=== PATIENT | female | born 1990 | race Caucasian/White ===

== ENCOUNTER 2017-03-26 22:42 | Emergency (ER) | payer OTHER ==
[~2017-03-26] VITALS: Ht 162.5 cm; Wt 86.2 kg
[~2017-03-26 22:42] MED LIST: AMOXICILLIN500 M2 PO; AMOXICILLIN500 M3 PO; AMOXICILLIN500 MG PO; AUGMENTIN 875 M1 TAB PO; AUGMENTIN 875875 MG PO; BACTRIM DS 8001 TA1 PO; BACTROBAN2% TP; BENTYL10 MG PO; CIPRO500 MG PO; CLARITIN10 MG PO; CLEOCIN150 MG PO; CLINDAMYCIN HC300 MG PO; DIFLUCAN150 MG PO; FLAGYL500 MG PO; FLEXERIL10 MG PO; HYDROCODONE BIT1 T11 PO; IBU800 MG PO; IRON325 M1 PO; KAOPECTATE525 MG/11 PO; LIDOCAINE VISC100 ML MM; MACROBID100 M1 PO; MACRODANTIN100 M1 PO; MAKENA250 MG/11 IM; MAXARON FORTE1 CAP; MEDROL DOSEPAK4 MG PO; MOTRIN800 MG PO; Motrin,Rufen800 MG PO; NAPROSYN250 MG PO; NAPROSYN500 MG PO; NITROFURANTOIN100 M1 PO; NKHM; NORCO 325 MG-51 TAB PO; OMEPRAZOLE40 MG PO; PEN-VEE K500 MG PO; PEN-VK500 MG PO; PENICILLIN VK500 MG PO; PENICILLIN-VK500 MG PO; PEPCID20 MG PO; PEPCID40 MG PO; PERCOCET 325 MG1 TA2 PO; PERCOCET 325 MG1 TA6 PO; PREDNISONE10 MG PO; PRENATAL PLUS1 EACH PO; PRENATAL VITAMI1 TAB PO; PRENATAL1 TA1 PO; PRENATAL1 TA7 PO; PYRIDIUM200 M1 PO; Peridex 473 ML473 ML PO; ROBITUSSIN DM 105 ML PO; TESSALON PERLE100 M1 PO; TESSALON PERLE200 MG PO; ULTRAM50 MG PO; VICODIN 5/500 505 MG PO; ZITHROMAX Z PA250 MG PO; ZITHROMAX250 MG PO; ZOFRAN ODT4 MG SL; ZYRTEC10 MG PO; Zofran4 MG PO
[2017-03-27] MEDS ORDERED: NAPROSYN500 MG PO ×2 (00:30→16:43)
== END 2017-03-27 00:57 | disposition home or self-care (01) ==
LOC: ED 22:42
DX: S93.401A Sprain of unspecified ligament of right ankle, initial encounter (principal); Z88.6 Allergy status to analgesic agent; Z90.49 Acquired absence of other specified parts of digestive tract; W01.0XXA Fall on same level from slipping, tripping and stumbling without subsequent striking against object, initial encounter; Y93.G3 Activity, cooking and baking; Y92.9 Unspecified place or not applicable; Y99.9 Unspecified external cause status

== ENCOUNTER 2017-03-27 16:23 | Emergency (ER) | payer OTHER ==
[~2017-03-27] VITALS: Ht 162.5 cm; Wt 86.2 kg
[2017-03-27] MEDS ORDERED: NAPROSYN500 MG PO (16:43)
== END 2017-03-27 16:48 | disposition home or self-care (01) ==
LOC: ED 16:23
DX: S93.401A Sprain of unspecified ligament of right ankle, initial encounter (principal); F17.200 Nicotine dependence, unspecified, uncomplicated; Z88.6 Allergy status to analgesic agent; X50.9XXA Other and unspecified overexertion or strenuous movements or postures, initial encounter; Y93.89 Activity, other specified; Y92.9 Unspecified place or not applicable; Y99.9 Unspecified external cause status

== ENCOUNTER 2017-04-17 19:47 | Emergency (ER) | payer OTHER ==
[~2017-04-17] VITALS: Ht 162.5 cm; Wt 85.7 kg
[2017-04-17] MEDS ORDERED: NAPROSYN500 MG PO (20:11)
== END 2017-04-17 20:47 | disposition home or self-care (01) ==
LOC: ED 19:47
DX: S93.601A Unspecified sprain of right foot, initial encounter (principal); R03.0 Elevated blood-pressure reading, without diagnosis of hypertension; F17.200 Nicotine dependence, unspecified, uncomplicated; Z88.6 Allergy status to analgesic agent; X58.XXXA Exposure to other specified factors, initial encounter; Y93.89 Activity, other specified; Y92.9 Unspecified place or not applicable; Y99.9 Unspecified external cause status

== ENCOUNTER 2017-08-28 19:07 | Emergency (ER) | payer SELFPAY ==
[~2017-08-28] VITALS: Ht 165.1 cm; Wt 90.7 kg
[2017-08-28 19:30] LABS: BILIRUBIN NEGATIVE (NEGATIVE); BLOOD NEGATIVE (NEGATIVE); CLARITY CLEAR (CLEAR); COLOR YELLOW (YELLOW); GLUCOSE NEGATIVE (NEGATIVE); KETONE NEGATIVE (NEGATIVE); LEUKO ESTERASE NEGATIVE (NEGATIVE); NITRITE NEGATIVE (NEGATIVE); SPECIFIC GRAVITY 1.015 (1.005-1.030); UROBILINOGEN 0.2 E.U./dl (0.2-1.0)
[2017-08-28 19:39] LABS: BASO # 0.1 10*3/uL (0.0-0.1); BASO % 0.7 % (0.0-1.0); EOS # 0.2 10*3/uL (0.0-0.4); EOS % 1.8 % (1.0-4.0); HEMATOCRIT 39.4 % (37.0-47.0); LYMPH # 2.6 10*3/uL (1.3-4.4); LYMPH % 24.8 % (27.0-41.0); MEAN CELL VOLUME 88.3 fl (81.0-99.0); MEAN CORPUSCULAR HGB 29.1 pg (27.0-31.0); MEAN PLATELET VOLUME 10.6 fl (9.6-12.3); MONO # 0.5 10*3/uL (0.1-1.0); MONO % 4.8 % (3.0-9.0); NEUT # 7.1 10*3/uL (2.3-7.9); NEUT % 67.5 % (47.0-73.0); PLATELET COUNT AUTOMATED 203 10*3/uL (130-400); RED BLOOD COUNT 4.46 10*6/uL (4.10-5.10); RED CELL DISTRI WIDTH 12.5 % (0-14.5); WHITE BLOOD COUNT 10.5 10*3/uL (4.8-10.8)
[2017-08-28 19:41] LABS: BACTERIA TRACE; EPITHELIAL CELLS 15-20; RBC 0-2 rbc/hpf (0-2); WBC 0-2 wbc/hpf (0-5)
[2017-08-28 19:55] LABS: ALBUMIN 3.5 gm/dl (3.1-4.5); ALKALINE PHOSPHATASE 99 U/L (45-117); BUN 18 mg/dl (7-24); CHLORIDE 105 mmol/L (98-107); CREATININE 0.76 mg/dL (0.55-1.02); LIPASE 112 U/L (73-393); SGOT/AST 14 IU/L (3-35); SGPT/ALT 15 U/L (12-78); SODIUM 139 mmol/L (136-145); TOTAL PROTEIN 7.8 gm/dL (6.4-8.2)
[2017-08-28] MEDS ORDERED: ANAPROX DS550 MG PO (20:35)
[2017-08-28] MEDS ORDERED: ZOFRAN ODT4 MG SL (20:35)
== END 2017-08-28 20:57 | disposition home or self-care (01) ==
LOC: ED 19:07
PROVIDERS: Physician Assistant
DX: R10.11 Right upper quadrant pain (principal); R30.0 Dysuria; R11.0 Nausea; F17.200 Nicotine dependence, unspecified, uncomplicated; Z88.6 Allergy status to analgesic agent; Z87.442 Personal history of urinary calculi

== ENCOUNTER 2017-08-31 09:11 | Inpatient (IN) | payer OTHER ==
[~2017-08-31] VITALS: Ht 162.5 cm; Wt 106.4 kg
[~2017-08-31 09:11] MED LIST changes: +ANAPROX DS550 MG PO
[2017-08-31 09:28] VITALS: BP 140/81
[2017-08-31 10:27] LABS: MAGNESIUM 2.1 mg/dL (1.5-2.1)
[2017-08-31 10:28] VITALS: BP 116/62
[2017-08-31 10:28] LABS: ALBUMIN 3.3 gm/dl (3.1-4.5); ALKALINE PHOSPHATASE 83 U/L (45-117); BUN 15 mg/dl (7-24); CHLORIDE 105 mmol/L (98-107); POTASSIUM 3.8 mmol/L (3.5-5.1); SGOT/AST 15 IU/L (3-35); SGPT/ALT 17 U/L (12-78); SODIUM 139 mmol/L (136-145); TOTAL PROTEIN 7.5 gm/dL (6.4-8.2)
[2017-08-31 10:30] LABS: BASO # 0.1 10*3/uL (0.0-0.1); BASO % 0.6 % (0.0-1.0); EOS # 0.2 10*3/uL (0.0-0.4); EOS % 2.1 % (1.0-4.0); LYMPH # 1.8 10*3/uL (1.3-4.4); MEAN CELL VOLUME 90.7 fl (81.0-99.0); MEAN CORPUSCULAR HGB 29.3 pg (27.0-31.0); MEAN CORPUSCULAR HGB CONC 32.4 g/dl (33.0-37.0); MEAN PLATELET VOLUME 10.3 fl (9.6-12.3); MONO # 0.4 10*3/uL (0.1-1.0); MONO % 4.3 % (3.0-9.0); NEUT % 71.6 % (47.0-73.0); PLATELET COUNT AUTOMATED 162 10*3/uL (130-400); RED BLOOD COUNT 3.75 10*6/uL (4.10-5.10); RED CELL DISTRI WIDTH 12.3 % (0-14.5); WHITE BLOOD COUNT 8.4 10*3/uL (4.8-10.8)
[2017-08-31 10:31] LABS: B-hCG (QUALITATIVE) NEGATIVE (NEGATIVE)
[2017-08-31 10:35] LABS: BILIRUBIN 1+ (NEGATIVE); BLOOD NEGATIVE (NEGATIVE); CLARITY SL CLOUDY (CLEAR); COLOR YELLOW (YELLOW); GLUCOSE NEGATIVE (NEGATIVE); KETONE NEGATIVE (NEGATIVE); LEUKO ESTERASE TRACE (NEGATIVE); NITRITE NEGATIVE (NEGATIVE); PH 5.5 (5.0-9.0)
[2017-08-31 10:54] LABS: BACTERIA 1+; EPITHELIAL CELLS TNTC
--- NOTE | 2017-08-31 11:28 | NUR ---
PT REMAINS W/O ACUTE DISTRESS NOTED AWAITING ALL REPORTS FOR ADDITIONAL PLAN OF CARE,NO COMPLAINTS VOICED.
--- NOTE | 2017-08-31 12:30 | NUR ---
GIVEN REPORT FROM STEVE. PT IS LYING ON BED. NO DISTRESS AT THIS TIME. WILL CONTINUE TO MONITOR.
[2017-08-31 12:50] VITALS: BP 120/63
--- NOTE | 2017-08-31 14:39 | NUR ---
PT TOLERATED PAIN MEDICATION WELL. PT STATES THAT SHE HAS RELIEF OF PAIN. VSS. WILL CONTINUE TO MONITOR.
[2017-08-31 15:15] VITALS: BP 122/82
--- NOTE | 2017-08-31 15:15 | NUR ---
Time: 1514 A 27 year old FEMALE admitted to under services of LIANNA PATTERSON DO. Pt. arrived via stretcher from ER. Chief complaint: ABDOMINAL PAIN AND NAUSEA. MADELYN OLIVAS
--- NOTE | 2017-08-31 15:49 | NUR ---
NOTIFIED DR GAMBLE OF CONSULT NEW ORDER RECEIVED TO KEEP NPO.
--- NOTE | 2017-08-31 16:31 | NUR ---
DIALUDID 0.5MG IV GIVEN PER PATIENT REQUEST FOR ABDOMINAL PAIN RATING A 7/10.
--- NOTE | 2017-08-31 17:30 | NUR ---
DILAUDID EFFECTIVE PER PATIENT.
--- NOTE | 2017-08-31 17:59 | NUR ---
ZOFRAN 4MG IV GIVEN PER PATIENT REQUEST FOR NAUSEA.
--- NOTE | 2017-08-31 19:34 | NUR ---
PRN DILAUDID GIVEN FOR PT COMPLAINTS OF RIGHT UPPER QUADRANT PAIN RATING IT AN 8/10. CALL LIGHT WITHIN REACH, WILL MONITOR
[2017-08-31 20:00] VITALS: BP 115/48
--- NOTE | 2017-08-31 20:00 | NUR ---
PRN DILAUDID SOMEWHAT EFFECTIVE PER PT. PAIN NOW 04/23
--- NOTE | 2017-08-31 22:22 | NUR ---
PRN DILAUDID GIVEN FOR PT COMPLAINTS OF PAIN IN RUQ RATING 9/10. CALL LIGHT WITHIN REACH, WILL MONITOR
--- NOTE | 2017-08-31 23:00 | NUR ---
PRN DILAUDID APPEARS EFFECTIVE, PT SLEEPING
[2017-09-01] VITALS: BP 119/67
--- NOTE | 2017-09-01 01:37 | NUR ---
PRN ZOFRAN AND DILAUDID GIVEN FOR PT COMPLAINTS OF NAUSEA AND RUQ ABDOMINAL PAIN RATING IT A 6/10. CALL LIGHT WITHIN REACH, WILL MONITOR
--- NOTE | 2017-09-01 02:30 | NUR ---
PRN MEDICATION APPEARS EFFECTIVE, PT SLEEPING
[2017-09-01 06:17] LABS: BASO % 0.5 % (0.0-1.0); EOS # 0.1 10*3/uL (0.0-0.4); EOS % 1.7 % (1.0-4.0); HEMATOCRIT 31.8 % (37.0-47.0); HEMOGLOBIN 10.1 g/dl (12.0-16.0); LYMPH # 1.5 10*3/uL (1.3-4.4); LYMPH % 25.6 % (27.0-41.0); MEAN CELL VOLUME 90.9 fl (81.0-99.0); MEAN CORPUSCULAR HGB 28.9 pg (27.0-31.0); MEAN CORPUSCULAR HGB CONC 31.8 g/dl (33.0-37.0); MEAN PLATELET VOLUME 11.4 fl (9.6-12.3); MONO # 0.3 10*3/uL (0.1-1.0); MONO % 5.3 % (3.0-9.0); NEUT # 3.9 10*3/uL (2.3-7.9); NEUT % 66.7 % (47.0-73.0); PLATELET COUNT AUTOMATED 171 10*3/uL (130-400); RED CELL DISTRI WIDTH 12.4 % (0-14.5); WHITE BLOOD COUNT 5.9 10*3/uL (4.8-10.8)
--- NOTE | 2017-09-01 06:44 | NUR ---
DR. GAMBLE IN TO SEE PATIENT. DR. GAMBLE STATES THE PATIENT WILL MAINTAIN ON FLUIDS, CAN HAVE A CLEAR LIQUID DIET, NO MORE DILAUDID UNLESS PAIN IS UNCONTROLLED WITH NORCO 5/325 EVERY 6 HOURS. THEN TO GIVE HIM A CALL FOR ANOTHER ORDER OF DILAUDID. DILAUDID SHOULD BE D/C'D. NO SURGERY OF RIGHT NOW
[2017-09-01 06:49] LABS: ALBUMIN 2.8 gm/dl (3.1-4.5); ALKALINE PHOSPHATASE 132 U/L (45-117); BUN 12 mg/dl (7-24); CHLORIDE 107 mmol/L (98-107); CHOLESTEROL 133 mg/dL (<200); HDL CHOLESTEROL 40 mg/dl (40-60); LDL CHOLESTEROL 76 mg/dL (9-159); MAGNESIUM 2.1 mg/dL (1.5-2.1); PHOSPHOROUS 3.5 mg/dL (2.5-4.9); POTASSIUM 3.7 mmol/L (3.5-5.1); SGOT/AST 69 IU/L (3-35); SGPT/ALT 64 U/L (12-78); SODIUM 141 mmol/L (136-145); TOTAL PROTEIN 6.8 gm/dL (6.4-8.2); TRIGLYCERIDES 85 mg/dl (<150); VLDL CHOLESTEROL 17 mg/dL (6-40)
[2017-09-01 06:54] LABS: ACT PARTIAL THROMBO TIME 23.9 SECONDS (20.8-31.5)
[2017-09-01 07:09] LABS: VITAMIN D, 25-HYDROXY 23.2 ng/mL (30-100)
[2017-09-01 08:00] VITALS: BP 121/61
--- NOTE | 2017-09-01 08:30 | NUR ---
Car Repairer Helper in to talk to patient. Patient states lives at HOME with HER BOYFRIEND. There are 0 steps in the home. Physician: SEE Pharmacy: [facility] Home health services: NONE Patient's level of ADLs: INDEPENDENT Patient has working utilities: YES DME: NONE Follow-up physician's appointment after d/c: WILL BE MADE PRIOR TO DC Does patient want to access PORTAL?: Discharge plan HOME. GILMA BELTRAN
[2017-09-01 12:00] VITALS: BP 98/62
--- NOTE | 2017-09-01 15:05 | NUR ---
DR GAMBLE IN TO SEE PT. ORDER RECEIVED FOR NPO AFTER MIDNIGHT 09/01 AND PT CAN HAVE YOGURT.
--- NOTE | 2017-09-01 15:50 | NUR ---
ADMINISTERED PO NRCO PER PT REQUEST FOR PAIN IN RIGHT UPPER AND LOWER QUADS RATED 6/10. WILL MONITOR FOR EFFECTIVENESS.
[2017-09-01 16:00] VITALS: BP 119/58
--- NOTE | 2017-09-01 16:51 | NUR ---
Patient resting quietly with no c/o discomfort. Respirations easy and regular. Vital signs stable. No overt distress. LALITHA VALLES
[2017-09-01 20:00] VITALS: BP 104/79
[2017-09-02] VITALS: BP 139/68
[2017-09-02 06:14] LABS: BASO % 0.5 % (0.0-1.0); EOS # 0.2 10*3/uL (0.0-0.4); EOS % 3.2 % (1.0-4.0); HEMATOCRIT 32.6 % (37.0-47.0); HEMOGLOBIN 10.6 g/dl (12.0-16.0); LYMPH # 2.1 10*3/uL (1.3-4.4); MEAN CELL VOLUME 90.8 fl (81.0-99.0); MEAN CORPUSCULAR HGB 29.5 pg (27.0-31.0); MEAN CORPUSCULAR HGB CONC 32.5 g/dl (33.0-37.0); MEAN PLATELET VOLUME 10.8 fl (9.6-12.3); MONO # 0.3 10*3/uL (0.1-1.0); MONO % 4.7 % (3.0-9.0); NEUT # 3.6 10*3/uL (2.3-7.9); NEUT % 58.4 % (47.0-73.0); PLATELET COUNT AUTOMATED 169 10*3/uL (130-400); RED BLOOD COUNT 3.59 10*6/uL (4.10-5.10); RED CELL DISTRI WIDTH 12.3 % (0-14.5); WHITE BLOOD COUNT 6.2 10*3/uL (4.8-10.8)
[2017-09-02 06:37] LABS: ALBUMIN 2.5 gm/dl (3.1-4.5); ALKALINE PHOSPHATASE 127 U/L (45-117); BUN 7 mg/dl (7-24); CHLORIDE 108 mmol/L (98-107); CREATININE 0.63 mg/dL (0.55-1.02); POTASSIUM 3.8 mmol/L (3.5-5.1); SGOT/AST 62 IU/L (3-35); SGPT/ALT 86 U/L (12-78); SODIUM 142 mmol/L (136-145); TOTAL PROTEIN 6.1 gm/dL (6.4-8.2)
--- NOTE | 2017-09-02 06:50 | NUR ---
DR. GAMBLE IN TO SEE PATIENT. STATES THAT PATIENT IS OK TO HAVE A REGULAR DIET AND OK TO GO HOME TODAY. SHE IS DOING MUCH BETTER.
--- NOTE | 2017-09-02 07:45 | NUR ---
PATIENT AWAKE. EATING BREAKFAST. STATES SHE IS FEELING MUCH BETTER AND IS EAGER TO GO HOME TODAY. NO PT COMPLAINTS AT THIS TIME.
[2017-09-02 08:00] VITALS: BP 137/84
--- NOTE | 2017-09-02 09:08 | NUR ---
PER PATIENT SHE ATE BREAKFAST AND IS NOT EXPERIENCING ANY NAUSEA OR PAIN AND WOULD LIKE TO GO HOME. PER DR GAMBLE PATIENT IS CLEAR TO GO. SPOKE TO DR LOYA REGARDING DISCHARGE. HE STATES HE WILL GET IT PUT IN.
[2017-09-02] MEDS ORDERED: CIPRO500 MG PO (09:37)
[2017-09-02] MEDS ORDERED: VITAMIN D31000 UNI1 PO (09:37)
[2017-09-02] MEDS ORDERED: FLAGYL500 MG PO (09:37)
--- NOTE | 2017-09-02 10:55 | NUR ---
Discharge instructions reviewed with patient/family. Patient receptive and verbalizes understanding. Follow-up care arranged. Written instructions given to patient/family. LALITHA VALLES
== END 2017-09-02 10:55 | disposition home or self-care (01) | DRG 394 ==
LOC: ED 09:11 → 4E 13:59 → EDHOLD 13:59 → 4E 14:15
PROVIDERS: Emergency Medicine; Family Medicine; Internal Medicine Nephrology; ADMIT Internal Medicine
DX: K35.80 Unspecified acute appendicitis (principal); E44.0 Moderate protein-calorie malnutrition; Z68.41 Body mass index [BMI] 40.0-44.9, adult; D64.9 Anemia, unspecified; D72.810 Lymphocytopenia; E66.09 Other obesity due to excess calories; F17.210 Nicotine dependence, cigarettes, uncomplicated; E55.9 Vitamin D deficiency, unspecified; Z71.6 Tobacco abuse counseling; Z88.6 Allergy status to analgesic agent; Z87.440 Personal history of urinary (tract) infections; Z90.49 Acquired absence of other specified parts of digestive tract; Z83.3 Family history of diabetes mellitus; Z79.899 Other long term (current) drug therapy

== ENCOUNTER 2017-10-16 13:35 | Emergency (ER) | payer OTHER ==
[~2017-10-16] VITALS: Ht 162.5 cm; Wt 99.8 kg
[~2017-10-16 13:35] MED LIST changes: +VITAMIN D31000 UNI1 PO
== END 2017-10-16 15:55 | disposition home or self-care (01) ==
LOC: ED 13:35
DX: J06.9 Acute upper respiratory infection, unspecified (principal); F17.200 Nicotine dependence, unspecified, uncomplicated; E66.9 Obesity, unspecified; Z90.49 Acquired absence of other specified parts of digestive tract; Z88.5 Allergy status to narcotic agent

== ENCOUNTER 2017-10-22 00:17 | Emergency (ER) | payer OTHER ==
[~2017-10-22] VITALS: Ht 162.5 cm; Wt 99.8 kg
[2017-10-22 01:00] LABS: BASO % 0.4 % (0.0-1.0); EOS # 0.2 10*3/uL (0.0-0.4); EOS % 2.3 % (1.0-4.0); HEMATOCRIT 35.5 % (37.0-47.0); HEMOGLOBIN 11.6 g/dl (12.0-16.0); LYMPH # 2.5 10*3/uL (1.3-4.4); LYMPH % 32.3 % (27.0-41.0); MEAN CELL VOLUME 88.3 fl (81.0-99.0); MEAN CORPUSCULAR HGB 28.9 pg (27.0-31.0); MEAN CORPUSCULAR HGB CONC 32.7 g/dl (33.0-37.0); MEAN PLATELET VOLUME 11.2 fl (9.6-12.3); MONO # 0.3 10*3/uL (0.1-1.0); MONO % 4.4 % (3.0-9.0); NEUT # 4.7 10*3/uL (2.3-7.9); NEUT % 60.3 % (47.0-73.0); PLATELET COUNT AUTOMATED 161 10*3/uL (130-400); RED BLOOD COUNT 4.02 10*6/uL (4.10-5.10); WHITE BLOOD COUNT 7.7 10*3/uL (4.8-10.8)
[2017-10-22 01:08] LABS: BILIRUBIN NEGATIVE (NEGATIVE); BLOOD NEGATIVE (NEGATIVE); CLARITY CLEAR (CLEAR); COLOR YELLOW (YELLOW); GLUCOSE NEGATIVE (NEGATIVE); KETONE NEGATIVE (NEGATIVE); LEUKO ESTERASE NEGATIVE (NEGATIVE); NITRITE NEGATIVE (NEGATIVE); SPECIFIC GRAVITY 1.025 (1.005-1.030); UROBILINOGEN 0.2 E.U./dl (0.2-1.0)
[2017-10-22 01:16] LABS: ALBUMIN 3.3 gm/dl (3.1-4.5); ALKALINE PHOSPHATASE 85 U/L (45-117); BUN 16 mg/dl (7-24); CHLORIDE 106 mmol/L (98-107); CREATININE 0.72 mg/dL (0.55-1.02); LIPASE 99 U/L (73-393); POTASSIUM 3.6 mmol/L (3.5-5.1); SGOT/AST 14 IU/L (3-35); SGPT/ALT 18 U/L (12-78); SODIUM 140 mmol/L (136-145); TOTAL PROTEIN 7.3 gm/dL (6.4-8.2)
[2017-10-22 01:17] LABS: EPITHELIAL CELLS 15-20
[2017-10-22 01:18] LABS: BETA-HCG, QUANT < 1.0 mIU/mL (1-3)
== END 2017-10-22 02:42 | disposition home or self-care (01) ==
LOC: ED 00:17
PROVIDERS: Student in an Organized Health Care Education/Training Program
DX: R10.31 Right lower quadrant pain (principal); F17.200 Nicotine dependence, unspecified, uncomplicated; Z90.49 Acquired absence of other specified parts of digestive tract; Z88.6 Allergy status to analgesic agent

== ENCOUNTER 2018-02-09 17:22 | Emergency (ER) | payer OTHER ==
[~2018-02-09] VITALS: Wt 89.8 kg
[2018-02-09] MEDS ORDERED: ACULAR 0.5%3 ML OPH (18:12)
[2018-02-09] MEDS ORDERED: ZYRTEC10 MG PO (18:12)
== END 2018-02-09 18:16 | disposition home or self-care (01) ==
LOC: ED 17:22
DX: H10.11 Acute atopic conjunctivitis, right eye (principal); F17.200 Nicotine dependence, unspecified, uncomplicated; Z90.49 Acquired absence of other specified parts of digestive tract; Z88.5 Allergy status to narcotic agent

== ENCOUNTER 2018-04-22 11:48 | Emergency (ER) | payer OTHER ==
[~2018-04-22] VITALS: Ht 162.5 cm; Wt 86.2 kg
[~2018-04-22 11:48] MED LIST changes: +ACULAR 0.5%3 ML OPH
[2018-04-22] MEDS ORDERED: AUGMENTIN 875-875 MG PO (12:18)
[2018-04-22] MEDS ORDERED: FLOXIN10 ML OT (12:18)
== END 2018-04-22 13:55 | disposition home or self-care (01) ==
LOC: ED 11:48
DX: H66.92 Otitis media, unspecified, left ear (principal); F17.200 Nicotine dependence, unspecified, uncomplicated; Z90.49 Acquired absence of other specified parts of digestive tract; Z79.899 Other long term (current) drug therapy; Z88.5 Allergy status to narcotic agent

== ENCOUNTER 2018-05-28 12:23 | Emergency (ER) | payer OTHER ==
[~2018-05-28] VITALS: Ht 162.5 cm; Wt 86.2 kg
[~2018-05-28 12:23] MED LIST changes: +AUGMENTIN 875-875 MG PO; +FLOXIN10 ML OT
[2018-05-28] MEDS ORDERED: TYLENOL325 M1 PO ×2 (12:39→12:40)
[2018-05-28] MEDS ORDERED: VALTREX1000 MG PO ×2 (12:39→12:40)
[2018-05-28] MEDS ORDERED: NAPROSYN500 MG PO ×2 (12:39→12:40)
== END 2018-05-28 12:50 | disposition home or self-care (01) ==
LOC: ED 12:23
DX: B02.9 Zoster without complications (principal); F17.200 Nicotine dependence, unspecified, uncomplicated; Z88.6 Allergy status to analgesic agent

== ENCOUNTER 2018-05-30 17:47 | Emergency (ER) | payer OTHER ==
[~2018-05-30] VITALS: Ht 162.5 cm; Wt 86.2 kg
[~2018-05-30 17:47] MED LIST changes: +TYLENOL325 M1 PO; +VALTREX1000 MG PO
[2018-05-30] MEDS ORDERED: NORCO 5-325 TA1 EACH PO (18:07)
== END 2018-05-30 18:16 | disposition home or self-care (01) ==
LOC: ED 17:47
DX: B02.9 Zoster without complications (principal); M79.605 Pain in left leg; M25.552 Pain in left hip; F17.200 Nicotine dependence, unspecified, uncomplicated; Z88.6 Allergy status to analgesic agent

== ENCOUNTER 2018-08-21 15:58 | Emergency (ER) | payer SELFPAY ==
[~2018-08-21] VITALS: Ht 162.5 cm; Wt 89.8 kg
[~2018-08-21 15:58] MED LIST changes: +NORCO 5-325 TA1 EACH PO
[2018-08-21 17:02] LABS: BASO % 0.4 % (0.0-1.0); EOS # 0.2 10*3/uL (0.0-0.4); EOS % 2.7 % (1.0-4.0); HEMATOCRIT 37.3 % (37.0-47.0); HEMOGLOBIN 12.3 g/dl (12.0-16.0); LYMPH # 2.2 10*3/uL (1.3-4.4); MEAN CELL VOLUME 88.2 fl (81.0-99.0); MEAN CORPUSCULAR HGB 29.1 pg (27.0-31.0); MEAN PLATELET VOLUME 11.7 fl (9.6-12.3); MONO # 0.4 10*3/uL (0.1-1.0); MONO % 4.7 % (3.0-9.0); NEUT # 4.7 10*3/uL (2.3-7.9); NEUT % 62.8 % (47.0-73.0); PLATELET COUNT AUTOMATED 161 10*3/uL (130-400); RED BLOOD COUNT 4.23 10*6/uL (4.10-5.10); RED CELL DISTRI WIDTH 13.2 % (0-14.5); WHITE BLOOD COUNT 7.5 10*3/uL (4.8-10.8)
[2018-08-21 17:17] LABS: ALBUMIN 3.4 gm/dl (3.1-4.5); ALKALINE PHOSPHATASE 79 U/L (45-117); BUN 19 mg/dl (7-24); CHLORIDE 106 mmol/L (98-107); CREATININE 0.75 mg/dL (0.55-1.02); POTASSIUM 4.1 mmol/L (3.5-5.1); SGOT/AST 17 IU/L (3-35); SGPT/ALT 19 U/L (12-78); SODIUM 140 mmol/L (136-145); TOTAL PROTEIN 7.7 gm/dL (6.4-8.2)
[2018-08-21] MEDS ORDERED: NEURONTIN300 MG PO (18:08)
== END 2018-08-21 18:07 | disposition home or self-care (01) ==
LOC: ED 15:58
PROVIDERS: Physician Assistant
DX: B02.29 Other postherpetic nervous system involvement (principal); F17.200 Nicotine dependence, unspecified, uncomplicated; Z88.5 Allergy status to narcotic agent; Z79.2 Long term (current) use of antibiotics; Z79.1 Long term (current) use of non-steroidal anti-inflammatories (NSAID); Z88.8 Allergy status to other drugs, medicaments and biological substances; Z90.49 Acquired absence of other specified parts of digestive tract

== ENCOUNTER 2018-08-27 11:27 | Emergency (ER) | payer OTHER ==
[~2018-08-27] VITALS: Ht 162.5 cm; Wt 86.2 kg
[~2018-08-27 11:27] MED LIST changes: +NEURONTIN300 MG PO
[2018-08-27] MEDS ORDERED: VALTREX1000 MG PO (13:08)
[2018-08-27] MEDS ORDERED: NEURONTIN300 MG PO (13:10)
== END 2018-08-27 14:05 | disposition home or self-care (01) ==
LOC: ED 11:27
DX: B02.29 Other postherpetic nervous system involvement (principal); B02.9 Zoster without complications; F17.200 Nicotine dependence, unspecified, uncomplicated; Z88.5 Allergy status to narcotic agent; Z79.2 Long term (current) use of antibiotics; Z79.899 Other long term (current) drug therapy; Z90.49 Acquired absence of other specified parts of digestive tract

== ENCOUNTER 2018-12-23 16:22 | Emergency (ER) | payer OTHER ==
[~2018-12-23] VITALS: Ht 162.5 cm; Wt 89.8 kg
[2018-12-23] MEDS ORDERED: CLARITIN10 MG PO (16:50)
[2018-12-23] MEDS ORDERED: FLONASE ALLERG9.9 ML NAS (16:50)
[2018-12-23] MEDS ORDERED: PREDNISONE10 MG PO (16:50)
== END 2018-12-23 18:11 | disposition home or self-care (01) ==
LOC: ED 16:22
DX: B34.9 Viral infection, unspecified (principal); R03.0 Elevated blood-pressure reading, without diagnosis of hypertension; E66.9 Obesity, unspecified; F17.200 Nicotine dependence, unspecified, uncomplicated; Z88.5 Allergy status to narcotic agent; Z79.2 Long term (current) use of antibiotics; Z79.899 Other long term (current) drug therapy; Z90.49 Acquired absence of other specified parts of digestive tract

== ENCOUNTER 2019-04-03 07:37 | Emergency (ER) | payer OTHER ==
[~2019-04-03] VITALS: Ht 162.5 cm; Wt 90.3 kg
[~2019-04-03 07:37] MED LIST changes: +FLONASE ALLERG9.9 ML NAS
[2019-04-03] MEDS ORDERED: VALTREX1000 MG PO (07:52)
[2019-04-03] MEDS ORDERED: Motrin,Rufen400 MG PO (07:52)
[2019-04-03] MEDS ORDERED: TYLENOL325 M1 PO (07:52)
== END 2019-04-03 08:00 | disposition home or self-care (01) ==
LOC: ED 07:37
DX: B02.9 Zoster without complications (principal); R19.7 Diarrhea, unspecified; E66.9 Obesity, unspecified; F17.200 Nicotine dependence, unspecified, uncomplicated; Z88.5 Allergy status to narcotic agent

== ENCOUNTER 2019-04-06 07:33 | Emergency (ER) | payer OTHER ==
[~2019-04-06] VITALS: Ht 162.5 cm; Wt 89.8 kg
[~2019-04-06 07:33] MED LIST changes: +Motrin,Rufen400 MG PO
[2019-04-06] MEDS ORDERED: NORCO 5-325 TA1 EACH PO (08:08)
== END 2019-04-06 08:25 | disposition home or self-care (01) ==
LOC: ED 07:33
DX: B02.9 Zoster without complications (principal); M79.652 Pain in left thigh; E66.9 Obesity, unspecified; F17.200 Nicotine dependence, unspecified, uncomplicated; Z88.5 Allergy status to narcotic agent; Z79.899 Other long term (current) drug therapy; Z90.49 Acquired absence of other specified parts of digestive tract

== ENCOUNTER 2019-07-23 18:33 | Emergency (ER) | payer OTHER ==
[~2019-07-23] VITALS: Ht 162.5 cm; Wt 99.8 kg
[2019-07-23] MEDS ORDERED: NORCO 5-325 TA1 EACH PO (19:21)
[2019-07-23] MEDS ORDERED: ACYCLOVIR800 MG PO (19:21)
== END 2019-07-23 19:31 | disposition home or self-care (01) ==
LOC: ED 18:33
DX: B02.9 Zoster without complications (principal); F17.200 Nicotine dependence, unspecified, uncomplicated; Z88.6 Allergy status to analgesic agent

== ENCOUNTER 2019-07-25 18:47 | Emergency (ER) | payer OTHER ==
[~2019-07-25] VITALS: Ht 162.5 cm; Wt 99.8 kg
[~2019-07-25 18:47] MED LIST changes: +ACYCLOVIR800 MG PO
[2019-07-25] MEDS ORDERED: NEURONTIN300 MG PO ×2 (21:10→21:11)
== END 2019-07-25 21:04 | disposition home or self-care (01) ==
LOC: ED 18:47
DX: K52.9 Noninfective gastroenteritis and colitis, unspecified (principal); B02.9 Zoster without complications; R11.2 Nausea with vomiting, unspecified; F17.200 Nicotine dependence, unspecified, uncomplicated; Z90.49 Acquired absence of other specified parts of digestive tract; Z79.899 Other long term (current) drug therapy; Z88.5 Allergy status to narcotic agent

== ENCOUNTER 2019-08-01 20:55 | Emergency (ER) | payer OTHER ==
[~2019-08-01] VITALS: Ht 162.5 cm; Wt 103.4 kg
[2019-08-01 21:11] LABS: BILIRUBIN NEGATIVE (NEGATIVE); BLOOD NEGATIVE (NEGATIVE); CLARITY SL CLOUDY (CLEAR); COLOR YELLOW (YELLOW); GLUCOSE NEGATIVE (NEGATIVE); KETONE NEGATIVE (NEGATIVE); LEUKO ESTERASE TRACE (NEGATIVE); NITRITE NEGATIVE (NEGATIVE); PH 7.5 (5.0-9.0); SPECIFIC GRAVITY 1.015 (1.005-1.030); UROBILINOGEN 0.2 E.U./dl (0.2-1.0)
[2019-08-01 21:17] LABS: BACTERIA TRACE
[2019-08-01 22:00] LABS: ALBUMIN 3.4 gm/dl (3.1-4.5); ALKALINE PHOSPHATASE 109 U/L (45-117); BUN 16 mg/dl (7-24); CHLORIDE 104 mmol/L (98-107); CREATININE 0.73 mg/dL (0.55-1.02); LIPASE 123 U/L (73-393); POTASSIUM 3.6 mmol/L (3.5-5.1); SGOT/AST 87 IU/L (3-35); SGPT/ALT 119 U/L (12-78); SODIUM 137 mmol/L (136-145); TOTAL PROTEIN 7.3 gm/dL (6.4-8.2)
[2019-08-01 22:56] LABS: BASO % 0.3 % (0.0-1.0); EOS # 0.2 10*3/uL (0.0-0.4); EOS % 1.9 % (1.0-4.0); HEMATOCRIT 37.5 % (37.0-47.0); HEMOGLOBIN 12.6 g/dl (12.0-16.0); LYMPH # 2.4 10*3/uL (1.3-4.4); MEAN CELL VOLUME 88.2 fl (81.0-99.0); MEAN CORPUSCULAR HGB 29.6 pg (27.0-31.0); MEAN CORPUSCULAR HGB CONC 33.6 g/dl (33.0-37.0); MEAN PLATELET VOLUME 11.7 fl (9.6-12.3); MONO # 0.4 10*3/uL (0.1-1.0); MONO % 4.3 % (3.0-9.0); NEUT % 66.3 % (47.0-73.0); PLATELET COUNT AUTOMATED 181 10*3/uL (130-400); RED BLOOD COUNT 4.25 10*6/uL (4.10-5.10); RED CELL DISTRI WIDTH 12.8 % (0-14.5)
== END 2019-08-01 23:32 | disposition home or self-care (01) ==
LOC: ED 20:55
PROVIDERS: Emergency Medicine; Physician Assistant
DX: R10.31 Right lower quadrant pain (principal); R11.2 Nausea with vomiting, unspecified; F17.200 Nicotine dependence, unspecified, uncomplicated; Z88.5 Allergy status to narcotic agent; Z79.899 Other long term (current) drug therapy; Z90.49 Acquired absence of other specified parts of digestive tract

== ENCOUNTER 2019-08-26 18:55 | Emergency (ER) | payer OTHER ==
[~2019-08-26] VITALS: Ht 162.5 cm; Wt 98.0 kg
[2019-08-26 20:16] LABS: ALBUMIN 3.6 gm/dl (3.1-4.5); ALKALINE PHOSPHATASE 109 U/L (45-117); BUN 15 mg/dl (7-24); CHLORIDE 103 mmol/L (98-107); CREATININE 0.88 mg/dL (0.55-1.02); POTASSIUM 3.7 mmol/L (3.5-5.1); SGOT/AST 12 IU/L (3-35); SGPT/ALT 21 U/L (12-78); SODIUM 139 mmol/L (136-145); TOTAL PROTEIN 8.3 gm/dL (6.4-8.2)
[2019-08-26 20:45] LABS: BASO % 0.3 % (0.0-1.0); EOS # 0.1 10*3/uL (0.0-0.4); EOS % 0.9 % (1.0-4.0); HEMATOCRIT 39.9 % (37.0-47.0); HEMOGLOBIN 12.9 g/dl (12.0-16.0); LYMPH # 2.4 10*3/uL (1.3-4.4); LYMPH % 26.6 % (27.0-41.0); MEAN CELL VOLUME 91.3 fl (81.0-99.0); MEAN CORPUSCULAR HGB 29.5 pg (27.0-31.0); MEAN CORPUSCULAR HGB CONC 32.3 g/dl (33.0-37.0); MEAN PLATELET VOLUME 11.2 fl (9.6-12.3); MONO # 0.5 10*3/uL (0.1-1.0); MONO % 5.6 % (3.0-9.0); NEUT # 6.1 10*3/uL (2.3-7.9); NEUT % 66.4 % (47.0-73.0); PLATELET COUNT AUTOMATED 189 10*3/uL (130-400); RED BLOOD COUNT 4.37 10*6/uL (4.10-5.10); RED CELL DISTRI WIDTH 12.7 % (0-14.5); WHITE BLOOD COUNT 9.2 10*3/uL (4.8-10.8)
[2019-08-26] MEDS ORDERED: ANUSOL-HC25 MG R (21:52)
== END 2019-08-26 22:10 | disposition home or self-care (01) ==
LOC: ED 18:55
PROVIDERS: Emergency Medicine
DX: K64.9 Unspecified hemorrhoids (principal); E66.9 Obesity, unspecified; F17.200 Nicotine dependence, unspecified, uncomplicated; Z88.5 Allergy status to narcotic agent; Z90.49 Acquired absence of other specified parts of digestive tract

== ENCOUNTER 2019-11-12 22:34 | Emergency (ER) | payer OTHER ==
[~2019-11-12] VITALS: Ht 162.5 cm; Wt 131.5 kg
[~2019-11-12 22:34] MED LIST changes: +ANUSOL-HC25 MG R
[2019-11-13] MEDS ORDERED: TESSALON PERLE100 M1 PO (00:04)
[2019-11-13] MEDS ORDERED: ZITHROMAX250 MG PO (00:04)
== END 2019-11-13 00:10 | disposition home or self-care (01) ==
LOC: ED 22:34
DX: J40 Bronchitis, not specified as acute or chronic (principal); F17.200 Nicotine dependence, unspecified, uncomplicated; Z88.2 Allergy status to sulfonamides; Z79.899 Other long term (current) drug therapy

== ENCOUNTER 2019-11-17 01:25 | Emergency (ER) | payer OTHER ==
[~2019-11-17] VITALS: Ht 175.2 cm; Wt 131.5 kg
[2019-11-17] MEDS ORDERED: DIFLUCAN150 MG PO (03:56)
[2019-11-17] MEDS ORDERED: PREDNISONE10 MG PO (03:56)
[2019-11-17] MEDS ORDERED: OMNICEF300 MG PO (03:56)
[2019-11-17] MEDS ORDERED: Ventolin 02.5 MG/3 M INH (04:00)
== END 2019-11-17 04:15 | disposition home or self-care (01) ==
LOC: ED 01:25
DX: J20.9 Acute bronchitis, unspecified (principal); R19.7 Diarrhea, unspecified; F17.200 Nicotine dependence, unspecified, uncomplicated; Z88.5 Allergy status to narcotic agent

== ENCOUNTER 2020-01-16 09:48 | Emergency (ER) | payer OTHER ==
[~2020-01-16] VITALS: Ht 162.5 cm; Wt 97.5 kg
[~2020-01-16 09:48] MED LIST changes: +OMNICEF300 MG PO; +Ventolin 02.5 MG/3 M INH
[2020-01-16 10:25] LABS: BILIRUBIN NEGATIVE (NEGATIVE); BLOOD NEGATIVE (NEGATIVE); CLARITY SL CLOUDY (CLEAR); COLOR YELLOW (YELLOW); GLUCOSE NEGATIVE (NEGATIVE); KETONE NEGATIVE (NEGATIVE)
[2020-01-16 10:26] LABS: UROBILINOGEN 0.2 E.U./dl (0.2-1.0)
[2020-01-16 10:27] LABS: LEUKO ESTERASE 1+ (NEGATIVE); NITRITE NEGATIVE (NEGATIVE)
[2020-01-16 10:31] LABS: BASO # 0.1 10*3/uL (0.0-0.1); BASO % 0.9 % (0.0-1.0); EOS # 0.2 10*3/uL (0.0-0.4); EOS % 2.6 % (1.0-4.0); HEMOGLOBIN 13.1 g/dl (12.0-16.0); LYMPH # 2.6 10*3/uL (1.3-4.4); LYMPH % 37.9 % (27.0-41.0); MEAN CELL VOLUME 90.1 fl (81.0-99.0); MEAN CORPUSCULAR HGB 29.5 pg (27.0-31.0); MEAN CORPUSCULAR HGB CONC 32.8 g/dl (33.0-37.0); MEAN PLATELET VOLUME 11.6 fl (9.6-12.3); MONO # 0.4 10*3/uL (0.1-1.0); MONO % 5.1 % (3.0-9.0); NEUT # 3.6 10*3/uL (2.3-7.9); NEUT % 53.2 % (47.0-73.0); PLATELET COUNT AUTOMATED 171 10*3/uL (130-400); RED BLOOD COUNT 4.44 10*6/uL (4.10-5.10); RED CELL DISTRI WIDTH 12.5 % (0-14.5); WHITE BLOOD COUNT 6.8 10*3/uL (4.8-10.8)
[2020-01-16 10:32] LABS: BACTERIA 2+
[2020-01-16 10:48] LABS: ALBUMIN 3.4 gm/dl (3.1-4.5); ALKALINE PHOSPHATASE 79 U/L (45-117); BUN 20 mg/dl (7-24); CHLORIDE 106 mmol/L (98-107); CREATININE 0.91 mg/dL (0.55-1.02); LIPASE 103 U/L (73-393); SGOT/AST 14 IU/L (3-35); SGPT/ALT 21 U/L (12-78); SODIUM 138 mmol/L (136-145); TOTAL PROTEIN 7.4 gm/dL (6.4-8.2)
[2020-01-16] MEDS ORDERED: SEPTDS PO (10:59)
== END 2020-01-16 11:10 | disposition home or self-care (01) ==
LOC: ED 09:48
PROVIDERS: Nurse Practitioner Family
DX: N39.0 Urinary tract infection, site not specified (principal); F17.200 Nicotine dependence, unspecified, uncomplicated; Z88.6 Allergy status to analgesic agent

== ENCOUNTER 2020-02-01 23:29 | Emergency (ER) | payer OTHER ==
[~2020-02-01] VITALS: Ht 162.5 cm; Wt 97.5 kg
[~2020-02-01 23:29] MED LIST changes: +SEPTDS PO
[2020-02-02] MEDS ORDERED: PROVENTIL HFA6.7 GM INH (01:22)
== END 2020-02-02 02:02 | disposition home or self-care (01) ==
LOC: ED 23:29
DX: J40 Bronchitis, not specified as acute or chronic (principal); Z88.6 Allergy status to analgesic agent; Z87.891 Personal history of nicotine dependence

== ENCOUNTER 2020-02-06 01:17 | Emergency (ER) | payer OTHER ==
[~2020-02-06] VITALS: Ht 162.5 cm; Wt 111.1 kg
[~2020-02-06 01:17] MED LIST changes: +PROVENTIL HFA6.7 GM INH
[2020-02-06 02:06] LABS: BASO # 0.1 10*3/uL (0.0-0.1); BASO % 0.7 % (0.0-1.0); EOS # 0.3 10*3/uL (0.0-0.4); EOS % 3.3 % (1.0-4.0); HEMATOCRIT 37.9 % (37.0-47.0); HEMOGLOBIN 12.4 g/dl (12.0-16.0); LYMPH # 3.5 10*3/uL (1.3-4.4); MEAN CELL VOLUME 89.4 fl (81.0-99.0); MEAN CORPUSCULAR HGB 29.2 pg (27.0-31.0); MEAN CORPUSCULAR HGB CONC 32.7 g/dl (33.0-37.0); MEAN PLATELET VOLUME 10.8 fl (9.6-12.3); MONO # 0.7 10*3/uL (0.1-1.0); MONO % 6.8 % (3.0-9.0); NEUT # 5.2 10*3/uL (2.3-7.9); PLATELET COUNT AUTOMATED 233 10*3/uL (130-400); RED BLOOD COUNT 4.24 10*6/uL (4.10-5.10); RED CELL DISTRI WIDTH 12.7 % (0-14.5); WHITE BLOOD COUNT 9.7 10*3/uL (4.8-10.8)
[2020-02-06 02:17] LABS: BILIRUBIN NEGATIVE (NEGATIVE); BLOOD 1+ (NEGATIVE); CLARITY CLEAR (CLEAR); COLOR YELLOW (YELLOW); GLUCOSE NEGATIVE (NEGATIVE); KETONE NEGATIVE (NEGATIVE); LEUKO ESTERASE NEGATIVE (NEGATIVE); NITRITE NEGATIVE (NEGATIVE); UROBILINOGEN 0.2 E.U./dl (0.2-1.0)
[2020-02-06 02:22] LABS: ALBUMIN 3.4 gm/dl (3.1-4.5); ALKALINE PHOSPHATASE 100 U/L (45-117); BUN 15 mg/dl (7-24); CHLORIDE 106 mmol/L (98-107); CREATININE 0.82 mg/dL (0.55-1.02); SGOT/AST 14 IU/L (3-35); SGPT/ALT 21 U/L (12-78); SODIUM 141 mmol/L (136-145); TOTAL PROTEIN 7.8 gm/dL (6.4-8.2)
[2020-02-06 02:32] LABS: EPITHELIAL CELLS 0-5
== END 2020-02-06 05:49 | disposition left against medical advice (07) ==
LOC: ED 01:17
PROVIDERS: Emergency Medicine
DX: R07.89 Other chest pain (principal); R07.81 Pleurodynia; E66.9 Obesity, unspecified; F17.200 Nicotine dependence, unspecified, uncomplicated; Z88.6 Allergy status to analgesic agent

== ENCOUNTER 2020-03-24 20:21 | Emergency (ER) | payer OTHER ==
[~2020-03-24] VITALS: Ht 162.5 cm; Wt 117.0 kg
[2020-03-24] MEDS ORDERED: VALTREX1000 MG PO (20:39)
[2020-03-24] MEDS ORDERED: ANAPROX DS550 MG PO (20:39)
[2020-03-24] MEDS ORDERED: NORCO 5-325 TA1 EACH PO (20:39)
== END 2020-03-24 20:47 | disposition home or self-care (01) ==
LOC: ED 20:21
DX: L98.8 Other specified disorders of the skin and subcutaneous tissue (principal); B00.9 Herpesviral infection, unspecified; F17.200 Nicotine dependence, unspecified, uncomplicated; Z88.6 Allergy status to analgesic agent

== ENCOUNTER 2020-04-30 16:32 | Emergency (ER) | payer OTHER ==
[~2020-04-30] VITALS: Wt 95.7 kg
[2020-04-30] MEDS ORDERED: AMOXICILLIN500 M2 PO (16:43)
[2020-04-30] MEDS ORDERED: NAPROSYN500 MG PO (16:43)
== END 2020-04-30 16:53 | disposition home or self-care (01) ==
LOC: ED 16:32
DX: K08.89 Other specified disorders of teeth and supporting structures (principal); K01.1 Impacted teeth; F17.200 Nicotine dependence, unspecified, uncomplicated; Z88.6 Allergy status to analgesic agent

== ENCOUNTER 2020-08-05 15:45 | Emergency (ER) | payer OTHER ==
[~2020-08-05] VITALS: Ht 162.5 cm; Wt 104.3 kg
[2020-08-05 17:55] LABS: BILIRUBIN NEGATIVE; CLARITY CLEAR (CLEAR); COLOR YELLOW (YELLOW); GLUCOSE NEGATIVE; KETONE NEGATIVE
[2020-08-05 17:56] LABS: BACTERIA TRACE; BLOOD NEGATIVE (NEGATIVE); LEUKO ESTERASE NEGATIVE (NEGATIVE); NITRITE NEGATIVE (NEGATIVE); SPECIFIC GRAVITY <= 1.005 (1.001-1.030); UROBILINOGEN 0.2 E.U./dl (0.0-1.0)
[2020-08-05 17:59] LABS: BASO # 0.1 10*3/uL (0.0-0.1); BASO % 0.5 % (0.0-1.0); EOS # 0.2 10*3/uL (0.0-0.4); EOS % 2.3 % (1.0-4.0); HEMATOCRIT 38.1 % (37.0-47.0); LYMPH # 2.4 10*3/uL (1.3-4.4); LYMPH % 24.5 % (27.0-41.0); MEAN CELL VOLUME 88.2 fl (81.0-99.0); MEAN CORPUSCULAR HGB 28.2 pg (27.0-31.0); MEAN PLATELET VOLUME 11.6 fl (9.6-12.3); MONO # 0.5 10*3/uL (0.1-1.0); MONO % 5.3 % (3.0-9.0); NEUT # 6.5 10*3/uL (2.3-7.9); NEUT % 67.2 % (47.0-73.0); PLATELET COUNT AUTOMATED 197 10*3/uL (130-400); RED BLOOD COUNT 4.32 10*6/uL (4.10-5.10); RED CELL DISTRI WIDTH 13.2 % (0-14.5); WHITE BLOOD COUNT 9.7 10*3/uL (4.8-10.8)
[2020-08-05 18:17] LABS: ALBUMIN 3.4 gm/dl (3.1-4.5); ALKALINE PHOSPHATASE 117 U/L (45-117); BUN 14 mg/dl (7-24); CHLORIDE 106 mmol/L (98-107); CREATININE 0.77 mg/dL (0.55-1.02); POTASSIUM 3.6 mmol/L (3.5-5.1); SGOT/AST 16 IU/L (3-35); SGPT/ALT 27 U/L (12-78); SODIUM 136 mmol/L (136-145); TOTAL PROTEIN 7.7 gm/dL (6.4-8.2)
== END 2020-08-05 20:04 | disposition home or self-care (01) ==
LOC: ED 15:45
PROVIDERS: Nurse Practitioner
DX: B34.9 Viral infection, unspecified (principal); Z88.8 Allergy status to other drugs, medicaments and biological substances; Z79.899 Other long term (current) drug therapy